=== PATIENT | female | born 1960 | race Caucasian/White ===

== ENCOUNTER → 2017-03-10 | Outpatient (CLI) | payer OTHER ==
[~2017-03-10] MED LIST: ALBUTEROL17 GM INH; COLACE PO; DILANTIN PO; HYDROGESIC 5/501 CAP PO; NORVASC PO; PROCTOFOAM-HC10 GM PR; ZANTAC PO
--- NOTE | ~2017-03-10 | BD1 ---
[facility] A Service of [facility] RADIOLOGY TEXT RESULTS PATIENT: RAMIN GARZA LOCATION: [facility] : 60 UNIT #: [id number] AGE: [address]: Cedric Rodriguez MD SEX: F ORDER DR: [id number] [facility] [address] [place], [place] [address] [id number] O MR#: [id number] Acc #: [id number] NAME: RAMIN GARZA : 1960 SEX: F STUDY DATE/TIME: 03/10/2017 12:10 UNIT: [facility] ROOM: STUDY DESCRIPTION: BD Dexa Bone Dens 1+ Site Attending Physician: Cedric Rodriguez M.D. Referring Physician: Cedric Rodriguez M.D. Ordering Physician: Cedric Rodriguez M.D. Primary Care Physician: Cedric Rodriguez M.D. MEDICAL IMAGING REPORT This report is preliminary unless electronic signature is present EXAM DXA scan, 03/10/2017. HISTORY Status post menopause with no hormone replacement therapy. Osteopenia. Family history of breast carcinoma in sister. Hypertension with blood pressure medication. FINDINGS Bone mineral density in the lumbar spine from L1-L4 is 0.84 g/cm2 which is 1.9 standard deviations below the mean when compared to the young adult reference population which is characteristic of osteopenia. This is 0.7 standard deviations below the mean when compared to the age-matched population. Bone mineral density in the left femoral neck was 0.632 g/cm2 which is 2 standard deviations below the mean when compared to the young adult reference population which is characteristic of osteopenia. This is 0.8 standard deviations below the mean when compared to the age-matched population. IMPRESSION Bone mineral density in the lumbar spine and left hip characteristic of osteopenia. Dictated by... Judah Mckeon M.D. THIS IS AN ELECTRONICALLY VERIFIED REPORT Judah Mckeon M.D. at 03/11/2017 7:18 AM KRT/tmw [facility] A Service of [facility] RADIOLOGY TEXT RESULTS PATIENT: RAMIN GARZA LOCATION: [facility] : 60 UNIT #: [id number] AGE: [address]: Cedric Rodriguez MD SEX: F ORDER DR: TD: 03/10/2017 16:28 JOB #: [id number] MEDICAL IMAGING REPORT Page 1 of 1 COPY
--- NOTE | ~2017-03-10 | MY29 ---
[facility] A Service [facility] RADIOLOGY TEXT RESULTS PATIENT: RAMIN GARZA LOCATION: [facility] : 60 UNIT #: [id number] AGE: [address]: Cedric Rodriguez MD SEX: F ORDER DR: [id number] [facility] [address] [place], [place] [address] [id number] O MR#: [id number] Acc #: [id number] NAME: RAMIN GARZA : 1960 SEX: F STUDY DATE/TIME: 03/10/2017 12:10 UNIT: [facility] ROOM: STUDY DESCRIPTION: MY STACEY SCREENING W/ CAD BILAT Attending Physician: Cedric Rodriguez M.D. Referring Physician: Cedric Rodrgiuez M.D. Ordering Physician: Cedric Rodriguez M.D. Primary Care Physician: Cedric Rodriguez M.D. MEDICAL IMAGING REPORT This report is preliminary unless electronic signature is present EXAM Digital screening mammogram 03/10/2017 HISTORY 56-year-old woman positive family history, sister. Prior needle core biopsy left breast. Annual screen. COMPARISON Mammograms date to 05/10/2005 with most recent 12/19/2015 FINDINGS Digital imaging of each breast was completed utilizing screening protocol. Review includes FDA-approved CAD device. Breast parenchyma is fatty replaced and stable. Image-guided biopsy marker projects upper outer quadrant left breast. There is no breast mass. There are no interval occurring microcalcifications and no architectural distortion. IMPRESSION Negative mammogram. Annual screening recommended. Patients over the age of 40 are entered into a reminder system with target due date for the next mammogram. A result letter will also be sent to the patient. BIRADS: 1, negative. Dictated by... Zeb Cifuentes M.D. THIS IS AN ELECTRONICALLY VERIFIED REPORT Zeb Cifuentes M.D. at 03/11/2017 8:04 AM JBB/rnr [facility] A Service of [facility] RADIOLOGY TEXT RESULTS PATIENT: RAMIN GARZA LOCATION: [facility] : 60 UNIT #: [id number] AGE: [address]: Cedric Rodriguez MD SEX: F ORDER DR: TD: 03/10/2017 16:32 JOB #: [id number] MEDICAL IMAGING REPORT Page 1 of 1 COPY
== END | disposition home or self-care (01) ==
LOC: CWCC 03-02 12:00
DX: Z12.31 Encounter for screening mammogram for malignant neoplasm of breast (principal); Z13.820 Encounter for screening for osteoporosis; Z78.0 Asymptomatic menopausal state; Z80.3 Family history of malignant neoplasm of breast; Z98.890 Other specified postprocedural states
CPT/HCPCS: 77080; G0202